=== PATIENT | male | born 1990 | race Caucasian/White ===

== ENCOUNTER 2018-05-28 01:04 | Emergency (ER) | payer OTHER ==
[~2018-05-28] VITALS: Ht 172.7 cm; Wt 68.0 kg
--- NOTE | 2018-05-28 01:04 | NUR ---
PT BIB [facility], PREBOOK. TAKEN TO CHAIR E
[2018-05-28 01:06] VITALS: BP 124/76
--- NOTE | 2018-05-28 01:10 | NUR ---
ASSUMED CARE OF PT AT THIS TIME. PT BIB [facility] FOR PRE-BOOK. PT DENIES ANY MEDICAL COMPLAINTS AT THIS TIME. AAOX4 WITH EVEN AND STEADY GAIT; PATIENT STATES PAIN OF 0/10; VSS; PATIENT POSITIONED FOR COMFORT; ER MD MADE AWARE OF PT STATUS. WILL CONTINUE TO MONITOR.
--- NOTE | 2018-05-28 01:10 | NUR ---
Dr. Toussaint evaluating patient
--- NOTE | 2018-05-28 01:15 | NUR ---
PATIENT EXAMINED BY DR. BRADEN. PATIENT MEDICALLY CLEARED AND RELEASED IN CUSTODY IN STABLE CONDITION. ORIGINAL PRE-BOOK FORM GIVEN TO OFFIC[facility] #[id number].
== END 2018-05-28 01:15 ==
LOC: MED 01:04
DX: Z02.89 Encounter for other administrative examinations (principal)
CPT/HCPCS: 99283